=== PATIENT | male | born 1980 | race African-American/Black ===

== ENCOUNTER 2021-05-13 08:47 | Emergency (ER) | payer SELFPAY ==
[~2021-05-13] VITALS: Ht 180.3 cm; Wt 72.6 kg
--- NOTE | 2021-05-13 08:53 | NUR ---
BIBA TAKEN TO BED 8
[2021-05-13 08:54] VITALS: BP 146/97
--- NOTE | 2021-05-13 09:18 | NUR ---
40 Y/O M BIBA [facility] C/O GENERELIZED WEEKNESS AND SOB X TODAY. PT DENIES FALL. NKA OR PMH. PT IS IN BED, CONNECTED TO MONITOR. VITALS STABLE 142/93, 63,100R AIR, 97.7T.
[2021-05-13 10:14] LABS: BASOPHILS % (AUTO) 0.9 % (0.0-2.0); EOSINOPHILS # (AUTO) 0.1 K/uL (0-0.4); EOSINOPHILS % (AUTO) 2.9 % (0.0-4.0); HEMATOCRIT 43.6 % (36-52); HEMOGLOBIN 14.9 g/dL (12.0-18.0); LYMPHOCYTES # (AUTO) 1.9 K/uL (2.0-11.5); LYMPHOCYTES % (AUTO) 41.9 % (20.5-51.1); MEAN CORPUSCULAR HEMOGLOBIN 29 pg (27-31); MEAN CORPUSCULAR HGB CONC 34 g/dL (33-37); MEAN CORPUSCULAR VOLUME 84.7 fL (80-94); MONOCYTES # (AUTO) 0.4 K/uL (0.8-1.0); MONOCYTES % (AUTO) 9.5 % (1.7-9.3); NEUTROPHILS # (AUTO) 2.1 K/uL (1.8-7.7); NEUTROPHILS % (AUTO) 44.8 % (42.2-75.2); PLATELET COUNT (AUTO) 309 K/uL (140-450); RED BLOOD CELL COUNT(AUTO) 5.15 MIL/uL (4.20-6.10); RED CELL DISTRIBUTION WIDTH 14.3 % (11.6-13.7); WHITE BLOOD COUNT (AUTO) 4.6 K/uL (4.8-10.8)
[2021-05-13 10:40] LABS: ALBUMIN 4.1 g/dL (3.4-5.0); ANION GAP 8.7 (8-16); CARBON DIOXIDE 32.5 mmol/L (21-32); POTASSIUM 4.2 mmol/L (3.5-5.1); THYROID STIMULATING HORMONE 0.42 uIU/mL (0.34-3.74); TOTAL BILIRUBIN 0.4 mg/dL (0.0-1.0)
[2021-05-13 12:14] VITALS: BP 124/82
--- NOTE | 2021-05-13 12:15 | NUR ---
Patient discharged with v/s stable. Written and verbal after care instructions given and explained. Patient verbalized understanding. Ambulatory with steady gait. All questions addressed prior to discharge. Advised to follow up with PMD.
--- NOTE | 2021-05-13 12:24 | NUR ---
Chart checked and completed. The patient's care was reviewed and supervised by Peg Castanon RN.
== END 2021-05-13 12:14 | disposition home or self-care (01) ==
LOC: MED 08:47
DX: R53.83 Other fatigue (principal); R53.1 Weakness; F17.200 Nicotine dependence, unspecified, uncomplicated
CPT/HCPCS: 36415; 80053; 82550; 84443; 85025; 93005; 99284